=== PATIENT | male | born 1965 | race Caucasian/White ===

== ENCOUNTER → 2018-04-11 | Outpatient (CLI) | payer BC ==
[~2018-04-11] MED LIST: PRED-1 PO
--- NOTE | 2018-04-11 08:08 | RADIOLOGY IMAGING REPORT ---
FACILITY: [facility] PATIENT NAME: Chito Aguilar : 1965 MR: [id number] V: [id number] EXAM DATE: ORDERING PHYSICIAN: MAGGIE TOLEDO TECHNOLOGIST: Location: [facility] Patient: Chito Aguilar : 1965 Visit/Account:[id number] Date of Sevice: 04/11/2018 Technique: ORBITS FOREIGN BODY 1 VIEW HISTORY: History of metal in eyes Comparison studies: None FINDINGS: No metallic foreign body is identified. The visualized paranasal sinuses are clear. Mastoid air cells are clear. IMPRESSION: 1. No metallic foreign body. Report Dictated By: Jerry Chase DO at 04/11/2018 8:03 AM Report E-Signed By: Jerry Chase DO at 04/11/2018 8:04 AM WSN:[id number]
--- NOTE | 2018-04-11 09:28 | RADIOLOGY IMAGING REPORT ---
FACILITY: [facility] PATIENT NAME: Chito Aguilar : 1965 MR: [id number] V: [id number] EXAM DATE: ORDERING PHYSICIAN: MAGGIE TOLEDO TECHNOLOGIST: Location: Patient: Chito Aguilar : 1965 Visit/Account:[id number] Date of Sevice: 04/11/2018 MRI left knee without contrast Indication: Knee pain and swelling. Comparison: None available. Technique: Multiplanar, multisequence MRI examination is performed of the left knee without contrast. Findings: Examination of the medial compartment demonstrates a horizontal tear of the medial meniscus involving the posterior horn and extending to the junction with the medial meniscal body. No displaced menisca l fragment is seen. The articular cartilage surfaces are normal. Examination of the lateral compartment demonstrates increased signal and abnormal morphology involvin g the posterior horn of the lateral meniscus near the posterior root suspicious for focal tearing in this location. This involves the undersurface predominantly. No displaced fragment. The articular car tilage surfaces are normal. Examination of the patellofemoral compartment demonstrates shallow patellar chondrosis at the median ridge and along the lateral patellar surface. No subchondral edema or cyst formation. Trochlear surfa roly are maintained. ACL and PCL are intact. The MCL is intact. The lateral collateral ligament complex is maintained. The extensor mechanism is intact. A small joint effusion is seen. There is prepatellar and infrapatellar subcutaneous edema. IMPRESSION: 1. Horizontal tear of the posterior horn of the left knee medial meniscus which extends to the juncti on with the meniscal body. 2. Suspected undersurface root tearing of the posterior horn of the lateral meniscus. 3. 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 4. Small joint effusion. Report Dictated By: Daniel Ledesma at 04/11/2018 9:13 AM Report E-Signed By: Daniel Ledesma at 04/11/2018 9:24 AM WSN:[id number]
== END ==
LOC: MRI 02:09
PROVIDERS: ATTEND Physician Assistant Medical
DX: S83.204A Other tear of unspecified meniscus, current injury, left knee, initial encounter (principal); M25.462 Effusion, left knee
CPT/HCPCS: 70030